=== PATIENT | female | born 1955 | race Caucasian/White ===

== ENCOUNTER → 2016-07-04 | Outpatient (CLI) | payer MEDICARE ==
[~2016-07-04] MED LIST: AMIT50TA3 PO; ASPI-860 PO; CRS350T PO; ETD200C PO; LSRT50T PO; METH10TA2 PO; POTA10TA10 PO; ZALE10CA PO
[2016-07-04 10:06] LABS: BASOPHILS % (AUTO) 0 % (0-2); EOSINOPHILS # (AUTO) 0.4 10^3uL; EOSINOPHILS % (AUTO) 5 % (0-4); MEAN CORPUSCULAR HEMOGLOBIN 28.2 PG (26.0-34.0); MEAN CORPUSCULAR VOLUME 89 FL (80-100); MEAN PLATELET VOLUME 10.3 FL (6.0-9.5); MONOCYTES # (AUTO) 0.6 X10^3; MONOCYTES % (AUTO) 7 % (3-11); NEUTROPHILS # (AUTO) 3.9 X10^3; NEUTROPHILS % (AUTO) 50 % (51-67); PLATELET COUNT 169 10^3uL (150-450); WHITE BLOOD COUNT 7.86 10^3uL (4.0-11.0)
[2016-07-04 10:21] LABS: MEAN CORPUSCULAR HGB CONC 31.7 g/dL (31.0-37.0)
[2016-07-04 10:31] LABS: ALBUMIN 3.9 g/dL (3.4-5.0); ANION GAP 14.3 MEQ/L (3-15); CALCULATED IONIZED CALCIUM 3.9 mg/dL (3.8-4.6); TOTAL PROTEIN 7.7 g/dL (6.4-8.5)
== END ==
LOC: LAB 09:45
PROVIDERS: ATTEND Internal Medicine
DX: Z00.00 Encounter for general adult medical examination without abnormal findings (principal); E78.2 Mixed hyperlipidemia; K75.81 Nonalcoholic steatohepatitis (NASH); R79.89 Other specified abnormal findings of blood chemistry
CPT/HCPCS: 36415; 80053; 80061; 82248; 82306; 84443; 85025